=== PATIENT | female | born 1970 | race Caucasian/White ===

== ENCOUNTER 2023-01-23 17:14 | Emergency (ER) | payer BC ==
[~2023-01-23] VITALS: Ht 167.6 cm; Wt 49.0 kg
--- NOTE | 2023-01-23 17:15 | NUR ---
BIBS FOR SEVERE ABDOMINAL PAIN. HX KIDNEY STONES. A/O X 3, ABLE TO MAKE NEEDS KNOWN, TOLERATING WELL ON ROOM AIR.
[2023-01-23] MEDS ORDERED: IV NS 0.9% 1,000 ML BAG IV ONE ×2 (17:30→18:00)
[2023-01-23] MEDS ORDERED: KETOROLAC TROMETHAMINE INJ 30 MG/ML VIAL IV ONE (17:30)
[2023-01-23] MEDS ORDERED: KETOROLAC TROMETHAMINE 15 MG/ML VIAL ONE (17:37)
--- NOTE | 2023-01-23 17:40 | NUR ---
URINE SAMPLE COLLECTED AND SENT TO LAB
--- NOTE | 2023-01-23 17:45 | NUR ---
IV ESTABLISHED. 20G RAC
--- NOTE | 2023-01-23 17:46 | NUR ---
BLOOD DRAWN AND SENT TO LAB
[2023-01-23 17:54] LABS: BASOPHILS % (AUTO) 0.1 % (0.0-2.0); EOSINOPHILS % (AUTO) 0.4 % (0.0-6.0); HEMATOCRIT 40 % (33-45); HEMOGLOBIN 13.4 g/dL (11.5-14.8); LYMPHOCYTES # (AUTO) 0.4 K/uL (0.8-4.8); MEAN CORPUSCULAR HGB CONC 33 g/dl (31.0-36.0); MEAN CORPUSCULAR VOLUME 91 fL (82-100); MONOCYTES % (AUTO) 0.4 % (2.0-12.0); NEUTROPHILS # (AUTO) 3.2 K/uL (1.8-8.9); NEUTROPHILS % (AUTO) 88.1 % (43.0-81.0); PLATELET COUNT (AUTO) 196 K/uL (150-450); RED BLOOD CELL COUNT(AUTO) 4.46 MIL/uL (4.0-5.2); WHITE BLOOD COUNT (AUTO) 3.6 K/uL (4.3-11.0)
[2023-01-23 18:04] LABS: CALCIUM, SERUM 8.9 mg/dL (8.5-10.1); CREATININE 0.6 mg/dL (0.6-1.3); POTASSIUM 3.1 mmol/L (3.5-5.1)
[2023-01-23 18:09] LABS: ALBUMIN 3.4 g/dL (3.4-5.0); BILIRUBIN,DIRECT 0.2 mg/dL (0.0-0.2); TOTAL PROTEIN, SERUM 6.8 g/dL (6.4-8.2)
--- NOTE | 2023-01-23 18:12 | NUR ---
PATIENT TAKEN TO CT VIA [facility]
[2023-01-23 18:20] LABS: BILIRUBIN,URINE NEGATIVE (NEGATIVE); COLOR,URINE YELLOW (YELLOW); LEUKOCYTE ESTERASE ,URINE NEGATIVE (NEGATIVE); NITRITE, URINE NEGATIVE (NEGATIVE); PH,URINE 5.5 (5.0-8.0); PROTEIN,URINE NEGATIVE (NEGATIVE); UGLUCOSE NEGATIVE (NEGATIVE); UROBILINOGEN,URINE 0.2 EU/dL (0.2)
--- NOTE | 2023-01-23 19:10 | NUR ---
Pty is noted in bed alert, responsive as report is recieved from the off going that Pt came in C/O General Abdominal pain with Nausea x2HRS to Triage. Pt care continue as she is been monitor closely.
[2023-01-23] MEDS ORDERED: ACETAMINOPHEN 325 MG TABLET ONE (21:46)
--- NOTE | 2023-01-23 21:49 | NUR ---
Tylenol 650mg Po given as ordered. Pt care continue.
[2023-01-23] MEDS ORDERED: ACETAMINOPHEN 650 MG/20.3 ML UDC PO ONE (22:00)
[2023-01-23] MEDS ORDERED: OXYC5CAP18 PO (23:11)
[2023-01-23] MEDS ORDERED: IBUP-1955 PO (23:11)
--- NOTE | 2023-01-23 23:22 | NUR ---
Patient discharged to home in stable condition. Written and verbal after care instructions given. Patient verbalizes understanding of instruction. IV removed. Catheter intact and site benign. Pressure and 4x4 applied to site. No bleeding noted.
[2023-01-23 23:23] VITALS: BP 109/64
== END 2023-01-23 23:23 | disposition home or self-care (01) ==
LOC: ER 17:35
DX: R10.30 Lower abdominal pain, unspecified (principal); R00.0 Tachycardia, unspecified; R50.9 Fever, unspecified; Z79.899 Other long term (current) drug therapy; Z60.2 Problems related to living alone
CPT/HCPCS: 99285; 74176; 96374; 76856; 71045; 96361; 84145; 85025; 80048; 87086; 83690; 80076; 84703; 81003; 36415; 84484; J7030 ×2; J1885